=== PATIENT | male | born 1995 | race Caucasian/White ===

== ENCOUNTER 2025-09-09 02:36 | Emergency (ER) | payer OTHER, SELFPAY ==
[2025-09-09 02:53] VITALS: BP 128/75; PULSE 78; RESP 16; TEMP 36.6; O2SAT 98; BMI 26.4
--- NOTE | 2025-09-09 04:07 | ED_ITS ---
HPI - Medical Clearance General Chief complaint: Body Fluid Exposure Stated complaint: Body Fluid Exposure Time Seen by Provider: 09/09/25 04:03 Source: patient Limitations: no limitations History of Present Illness ED Provider: Yue Caputo PA-C HPI Narrative: 30-year-old male presents after bodily fluid exposure. Patient states he was a resting an individual, the person spit toward his face, he thinks there was a drop of saliva that touched his lip. The sputum was not bloody. The patient is up-to-date on his vaccines. The source patient is not willing to be tested for blood borne pathogens. Related Information Allergies Allergy/AdvReac Type Severity Reaction Status Date / Time No Known Allergies Allergy Verified 09/09/25 02:54 Review of Systems Review of Systems: Yes all other systems are reviewed and are negative Constitutional: Constitutional: Denies fatigue and Denies fever(s) Integumentary/Breasts: Skin/Breast: Denies sores and Denies wounds Endocrine: Endocrine: Denies fatigue PMFSH Past Medical History Attestation statement: The following information was validated with the patient. Physical Exam Vital Signs: Vital Signs: Last Vital Signs Temp 98 F 09/09/25 02:53 Pulse 78 09/09/25 02:53 Resp 16 09/09/25 02:53 BP 128/75 09/09/25 02:53 Pulse Ox 98 09/09/25 02:53 O2 Del Method Room Air 09/09/25 02:53 BMI result Body Mass Index 26.4 Const: Other: Alert well-appearing Orientation/consciousness: patient oriented x3 HEENT: Other: No breach in the oral mucosa of the lips Resp: Effort & Inspection: normal respiratory effort Cardio: Other: Normal peripheral perfusion Skin: Other: Warm dry no rash Neuro: General: patient oriented x3, gait normal, no focal motor deficits and CN's II-XI intact bilaterally Psych: Other: Cooperative Medical Decision Making Medical Decision Making [facility] Narrative: 30-year-old male presents after bodily fluid exposure. Patient states he was a resting an individual, the person spit toward his face, he thinks there was a drop of saliva that touched his lip. The sputum was not bloody. The patient is up-to-date on his vaccines. The source patient is not willing to be tested for blood borne pathogens. Problem: Exposure to bodily fluid History: Per patient I have considered the following differential diagnoses: Potential exposure to blood borne pathogen Plan: The nature of the exposure seems extremely minimal, it is also questionable that there was any actual saliva contact with the oral mucosa. I will determine this exposure to be low risk. The patient is declining post exposure prophylaxis. There was no indication for labs at this point. Differential Diagnosis Differential Diagnoses: The differential diagnosis associated with the presentation includes See medical decision-making Admission/Observation Consideration of admission/observation: Escalation of care including admission/observation considered Not apply Discharge Plan Discharge Clinical Impression: Exposure to blood or body fluid Patient Disposition: Home, Self-Care Instructions: Body Substance Exposure (ED) Additional Instructions: The nature of your exposure appears to be low risk from your description. Post exposure prophylaxis was not warranted. It would be ideal if the source patient was willing to be tested for potential blood borne pathogens. Continue to follow up with your primary care provider as needed.
[2025-09-09 04:17] VITALS: BP 128/75; PULSE 78; RESP 16; TEMP 36.6; O2SAT 98
--- OUTSIDE RECORDS SUMMARY | 2025-09-09 04:19 | XMS_ITS | Encounter Summary ---
Author Organization [facility] Address [address] [place] [address] Care Team Providers Care Scrap Crane Operator Name Role Phone Diane Mclean MD Primary Care Provider Unavaila ble Encounter Details Date Type Department Care Team (Late st Contact Info) Description 09/13/2015 Orders Only [facility] [address] [place] [id number] Diane Mclean MD Social History Tobacco Use Types Packs/Day Years Used Date Smoking Tobacco: Never Alcohol Use Standard Drinks/Week Comments Not Asked 0 (1 standard drink = 0.6 oz pur e alcohol) Sex and Gender Information Value Date Recorded Sex Assigned at Not on file Legal Sex Male 3:43 AM EDT Gender Identity Not on file Sexual Orientation Not on file documented as of this encounter Plan of Treatment Not on file documented as of this encounter Procedures * Due to [facility] law, this organization might not be sharing negative HIV tests. Procedure Name Priority Date/Time Associated Diagnosis Comments URINALYSIS, MICROSCOPIC Routine 09/13/2015 11:30 AM EST Abdominal pain, unspecified abdominal location documented in this encounter Results * Due to [place] [employer] law, this organization might not be sharing negative HIV tests. * URINALYSIS, MICROSCOPIC (09/13/2015 11:30 AM EST) WBC (Urine) NONE SEEN < OR = 5 /HPF [facility] Comment:{WBC {[id number]) RBC (Urine Sed) NONE SEEN < OR = 2 /HPF [facility] Comment:{RBC {[id number]) Epithelial cells.squamous (Urine sed) NONE SEEN < OR = 5 /HPF [facility] Comment:{SQUAMOUS EPITHELIAL CELLS {[id number]) Bacteria (Urine) NONE SEEN NONE SEEN /HPF [facility] Comment:{BACTERIA {[id number]) Hyaline casts (Urine sed) NONE SEEN NONE SEEN /LPF [facility] Comment:{HYALINE CAST {[id number]) 09/13/2015 11:3 0 AM EST 09/13/2015 3:41 PM EST Narrative Resulting Agency Comment [id number] Diane Mclean MD LAB SAME DAY RESULT Final Resul t [facility] [address] [place] [address] documented in this encounter Visit Diagnoses Diagnosis Abdominal pain, unspecified abdominal location documented in this encounter Care Teams Scrap Crane Operator Relationship Specialty Start Date End Date Diane Mclean MD PCP - General 02/02/06 documented as of this encounter
--- OUTSIDE RECORDS SUMMARY | 2025-09-09 04:19 | XMS_ITS | Clinical Summary ---
Author Organization [facility] Address [address] [place] [address] Care Team Providers Care Labor Specialist Name Role Phone Diane Mclean MD Primary Care Provider Unavaila ble Allergies Active Allergy Reactions Criticality Noted Date Comments Peanut Allergen Powder-Dnfp Anaphylaxis High 020 Medications EPINEPHrine (EPIPEN) 0.3 MG/0.3ML injection syringe Inject 0.3 mg into a muscle Active Active Problems Problem Noted Date Diagnosed Date Pectus excavatum 07/12/2010 Overview (07/12/2010): Minor, asymptomatic Well Child Visit 06/28/2008 Overview (11/26/2016): [employer]-; 7th grade 08; rrt geography; 9th grade 09; rrt 'science 10th grade 10 10th grade 11;hx ;rrt 12th grade 13; hx ?[facility] Fall 14 to [employer] [facility] and [facility] state 15 not sure ; likes to stay busy 2016 [employer]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 Immunizations Immunization Administration Dates Next Due Chicken Pox (Disease/Titer) 02/09/1998 Covid-19, Vector-nr (Saumya), 0.5 Ml 10/31/2021 ,08/31/2021 DTaP 03/15/2000, 7,1996,07/27,1996 FC Influenza Virus Vac Splt Prsrv Fr 3 Yrs+ 08/30/2009 Flu Vac State 6-35 mos 09/06/2008 Flu Vac State Mist 2-49 yrs 11/07/2012 HIB (PRP-T) 05/20/1997, 6,1996,05/18 HPV9 (Gardasil 9) 09/26/2022 Hep A 06/16/2013 Hep A (pedi) 06/28/2014 Hep B (pedi) 1996,1996,1996 IPV 03/15/2000 Influenza,injectable,quad,Prsrv Fr 08/05/2019, Influenza,seasonal,trivalent ,preservat samuel (FLUZONE MDV) 09/16/2007 MMR 03/19/2001,05/20/1997 Meningococcal ACWY (Menactra) 06/28/2014, 008 OPV, Trivalent (Admin Before 02/10/2016) ,1996,1996 Tdap 04/19/2021 Tdap(Boostrix) 06/28/2008 Family History Medical History Relation Name Comments Allergies (med/food/envrnmt) Brother 2 Allergies (med/food/envrnmt) Father GUADALUPE Diabetes Maternal grandfather Heart Disorder Maternal grandfather Hypertension Maternal grandfather Lipid/Cholesterol Abnormality Maternal grandfather Stroke Maternal grandfather Pulmonary Disorder Maternal grandmother Allergies (med/food/envrnmt) Mother SHAHLA SEASONAL Lipid/Cholesterol Abnormality Other 2 UNSPECIFIED FAMILY MEMBER Diabetes Other 3 UNSPECIFIED FAM THIAGO MEMBER Diabetes Paternal grandfather Alcohol/Drug Neg Hx Anesthesia Problems/Malignan t Hyperthermia Neg Hx Arthritis/Joint disorder Neg Hx Asthma Neg Hx Blood Cell Disorder/Hemoglobinopathy Neg Hx Cancer (?Type) Neg Hx Cancer - Breast Neg Hx Dementia Neg Hx Headache/Migraine Neg Hx No Known or Significant Medical History Neg Hx Other Neg Hx Psych/Mental Health Neg Hx Thyroid Disorder Neg Hx Relation Name Status Comments Brother 1 GLENN Alive Brother 2 Father GUADALUPE Alive Maternal grandfather Maternal grandmother Mother SHAHLA Alive Other 1 CHILDHOOD --UNSPECIFIED FAMILY MEMBER Other 2 Other 3 Paternal grandfather Social History Tobacco Use Types Packs/Day Years Used Date Smoking Tobacco: Never Smokeless Tobacco: Never Tobacco Cessation:Counseling Given: Not Answered Alcohol Use Standard Drinks/Week Comments Not Asked 0 (1 standard drink = 0.6 oz pur e alcohol) Intimate Partner Violence Answer Date R ecorded Fear of Current or Ex-Partner Not on file Emotionally Abused Not on file 07/13/2023 Physically Abused Not on file 07/13/2023 Sexually Abused Not on file 07/13/2023 Feel Safe at Home Not on file 07/13/2023 Sex and Gender Information Value Date Recorded Sex Assigned at Not on file Legal Sex Male 3:43 AM EDT Gender Identity Not on file Sexual Orientation Not on file Last Filed Vital Signs Vital Sign Reading Time Taken Comments Blood Pressure 123/80 07/21/2022 10:23 AM EDT Pulse 60 07/21/2022 10:23 AM EDT Temperature 36.8 C (98.3 F) 07/21/2022 10:23 AM EDT Respiratory Rate 20 07/26/2015 3:11 PM EDT Oxygen Saturation 98% 07/21/2022 10:23 AM EDT Inhaled Oxygen Concentration - - Weight 82.1 kg (181 lb) 11/26/2016 8:52 AM EST Height 184 cm (6' 0.44 ) 11/26/2016 8:52 AM EST Body Mass Index 24.25 11/26/2016 8:52 AM EST Plan of Treatment Health Maintenance Due Date Last Done Comments Hepatitis C Screening 1996 HPV Vaccine (2 - Male 3-dose series) 10/24/2022 09/26/2022 COVID-19 Vaccine ( season) 2025 10/31/2021, 08/31/2021 Influenza (#1) 2025 08/05/2019, 08/12, 11/07/2012, Additional history exists DTaP/Tdap/Td (8 - Td or Tdap) 04/19/2031 04/19/2021, 06/28/2008, 03/15/2000, Additional history exists Zoster (Shingrix) (1 of 2) 2046 Hep B Completed 1996, 06/1996, 1996 Hib Completed 05/20/1997, 10/11, 1996, Additional history exists Hep A Completed 06/28/2014, 06/16/2013 Meningococcal ACWY Completed 06/28/2014, 06/28/2008 Physical Discontinued 09/14/2020, 11/11, 07/26/2015, Additional history exists Pneumococcal Aged Out No longer eligi ble based on patient's age to complete this topic Insurance [facility] Care Teams Labor Specialist Relationship Specialty Start Date End Date Diane Mclean MD PCP - General 02/02/06
--- OUTSIDE RECORDS SUMMARY | 2025-09-09 04:19 | XMS_ITS | Encounter Summary ---
Author Organization [facility] Address [address] [place] [address] Care Team Providers Care Gas Truck Driver Name Role Phone Diane Mclean MD Primary Care Provider Unavaila ble Encounter Details Date Type Department Care Team (Late st Contact Info) Description 08/13/2012 Orders Only [facility] [address] [place] [phone] Diane Mclean MD Social History Tobacco Use Types Packs/Day Years Used Date Smoking Tobacco: Never Assessed Sex and Gender Information Value Date Recorded Sex Assigned at Not on file Legal Sex Male 3:43 AM EDT Gender Identity Not on file Sexual Orientation Not on file documented as of this encounter Plan of Treatment Not on file documented as of this encounter Procedures * Due to [place] [employer] law, this organization might not be sharing negative HIV tests. Procedure Name Priority Date/Time Associated Diagnosis Comments CULTURE, HERPES SIMPLEX VIRUS, RAPID METHOD WITHOUT TYPING Routine 08/13/2012 5:06 PM EDT Rash and nonspecific skin eruption CULTURE,AEROBIC WOUND,SUPERFICIAL Routine 08/13/2012 5:06 PM EDT Rash and nonspecific skin eruption documented in this encounter Results * Due to [place] [employer] [place] law, this organization might not be sharing negative HIV tests. * (ABNORMAL) CULTURE, HERPES SIMPLEX VIRUS, RAPID METHOD WITHOUT TYPING (08/13/2012 5:06 PM EDT) Herpes simplex virus identified SEE NOTE(A) [facility] Comment: {CULTURE, HERPES SIMPLEX VIRUS, RAPID METHOD {[id number]) CULTURE, HERPES SIMPLEX VIRUS, RAPID METHOD MICRO NUMBER: [id number] TEST STATUS: FINAL SPECIMEN SOURCE: NOT GIVEN SPECIMEN QUALITY: ADEQUATE HSV CULTURE: Positive 08/13/2012 5:06 PM EDT 08/13/2012 9:36 PM EDT Narrative Resulting Agency Comment [id number] Diane Mclean MD LABORATORY Final Result Performing Organization Address [facility] Co de Phone Number [facility] [address] [place] [address] * CULTURE, WOUND, SUPERFICIAL (08/13/2012 5:06 PM EDT) Bacteria culture SEE NOTE [facility] Comment: {CULTURE, AEROBIC BACTERIA {[id number]) CULTURE, AEROBIC BACTERIA MICRO NUMBER: [id number] TEST STATUS: FINAL SPECIMEN SOURCE: NOT GIVEN SPECIMEN QUALITY: ADEQUATE RESULT: Growth of skin billie (note: Growth does not include S. aureus, beta-hemolytic Streptococci or P. aeruginosa). 08/13/2012 5:06 PM EDT 08/13/2012 9:36 PM EDT Narrative Resulting Agency Comment [id number] Diane Mclean MD LABORATORY Final Result Performing Organization Address [facility] de Phone Number [facility] [address] [place] [address] documented in this encounter Visit Diagnoses Diagnosis Rash and nonspecific skin eruption Rash and other nonspecific skin eruption documented in this encounter Care Teams Gas Truck Driver Relationship Specialty Start Date End Date Diane Mclean MD PCP - General 02/02/06 documented as of this encounter
--- OUTSIDE RECORDS SUMMARY | 2025-09-09 04:19 | XMS_ITS | Encounter Summary ---
Author Organization [facility] Address [address] [place] [address] Care Team Providers Care Dresser Tender Name Role Phone Diane Mclean MD Primary Care Provider Unavaila ble Reason for Visit * Reason Comments E-prescribing Refill Request Encounter Details Date Type Department Care Team (Late st Contact Info) Description 12/06/2022 Refill [facility] [address] [address] Berna Fields PA E-prescribing Refill Request Social History Tobacco Use Types Packs/Day Years Used Date Smoking Tobacco: Never Smokeless Tobacco: Never Alcohol Use Standard Drinks/Week Comments [...] on file documented as of this encounter Visit Diagnoses Not on filedocumented in this encounter Care Teams Dresser Tender Relationship Specialty Start Date End Date Diane Mclean MD PCP - General 02/02/06 documented as of this encounter
--- OUTSIDE RECORDS SUMMARY | 2025-09-09 04:19 | XMS_ITS | Clinical Summary ---
Author Organization [facility] Address [address] [place] [address] Care Team Providers Care Clinical Nutrition Manager Name Role Phone Vik Owens MD Primary Care Provider [phone] Allergies No known active allergies Medications polymyxin B sulf-trimethoprim (POLYTRIM) ophthalmic solutionIndication s:Acute bacterial conjunctivitis of left eye Instill 1 drop into the left eye every 4 hours. 10 mL 02/02/20 23 Active Additional Information Patient not taking.Reported on 02/23/2025 Active Problems Problem Noted Date Diagnosed Date Elevated blood-pressure read ing without diagnosis of hypertension 12/19/2022 Assessment & Plan (12/19/2022 6:27 PM EST): Blood pressure today was high at 148/81 and 145/91. Recommend he monitor blood pressures at home and send an update on Mychart. Acute left ankle pain 12/19/2022 Assessment & Plan (12/19/2022 6:29 PM EST): Suspect left ankle ligament sprain. X- ray was ordered to rule out fracture. For pain control and inflammation, recommend Tylenol 1000 mg BID for 2 days, stop if no change. Continue ice and rest. Proceed with physical therapy. Follow up with sports medicine for potential injection. Vision changes 03/01/2022 Assessment & Plan (03/01/2022 6:04 PM EDT): Overall, Fabrizio has a history of worsening vision with associated floaters and different changes with light. Given he has a family history of vision difficulties and his grandmother, his primary concern is worsening vision to the point where he may go blind. I did reassure him that this was unlikely, however he would benefit from an ophthalmologic evaluation given the floaters, flashes of light, and overall worsening visual acuity. His cranial nerves are reassuring and a central lesion is unlikely for him. -Ambulatory referral to ophthalmology Laceration of left lower extremity 04/19/2021 Assessment & Plan (04/19/2021 11:53 AM EDT): Patient presented with a laceration to the left leg after falling out of his truck during a camping trip. Patient's leg became warm, painful, and swollen. Based on exam and history the patient had a healing laceration and injured soft tissue of the left lower leg that may have been an infection but showed no sign of current infection. This soft tissue bruising may take up to 6 weeks to heal. Patient was advised to continue lathering and rinsing the area with bar soap and water twice a day. Patient's tetanus shot was not up to date and he received a Tdap vaccine today. Patient can follow up as needed if symptoms worsen. 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 Irritable bowel syndrome wit h both constipation and diarrhea 09/09/2020 Immunizations Immunization Administration Dates Next Due Diphtheria, Tetanus Toxoids and Acellular Pertussis Vaccine 03/15/2000,09/10/1997,1996,07/27,1996 Haemophilus Influenzae Type B Vaccine, PRP-T Conjugate 05/20/1997,1996,1996,05/18 Hepatitis A Vaccine, Pediatric/Adolescent Dosage, 2 Dose Schedule 06/28/2014 Hepatitis A Vaccine, Pediatric/Adolescent Dosage, 3 Dose Schedule 06/16/2013 Hepatitis B Vaccine, Pediatr ic or Pediatric/Adolescent Dosage 1996,1996,1996 Human Papillomavirus 9-Valent Vaccine 09/26/2022 Influenza, Injectable, Quadr ivalent, Preservative Free 08/05/2019,09/02/2016,09/02/2016,11/07 Influenza, Trivalent, MDV, Injectable 08/30/2009 ,09/16/2007 Influenza, Unspecified 09/06/2008 Measles, Mumps, and Rubella Vaccine 03/19/2001,0 05/20/1997 Meningococcal Polysaccharide (Groups A, C, Y and W-135) Diphtheria Toxoid Conjugate Vaccine (MCV4P) 06/28/2014,06/28/2008 Poliovirus Vaccine, Inactivated 03/15/2000 Tetanus Toxoid, Reduced Diph theria Toxoid, and Acellular Pertussis Vaccine, Adsorbed 04/19/2021,06/28/2008 Trivalent Poliovirus Vaccine , Live, Oral 1996,1996,1996 Varicella Virus Vaccine 02/09/1998 Family History Medical History Relation Name Comments Myocardial Infarction Maternal Grandfather Brain cancer Maternal Grandmother Lung cancer Maternal Grandmother Heart murmur Mother Diabetes Paternal Grandfather Relation Name Status Comments Maternal Grandfather Maternal Grandmother Mother Paternal Grandfather Social History Tobacco Use Types Packs/Day Years Used Date Smoking Tobacco: Never Smokeless Tobacco: Never Tobacco Cessation:Counseling Given: Not Answered Alcohol Use Standard Drinks/Week Comments Yes 0 (1 standard drink = 0.6 oz pur e alcohol) Sex and Gender Information Value Date Recorded Sex Assigned at Male 02/28/2022 9:56 PM EDT Legal Sex Male 12:20 PM EDT Gender Identity Male 02/28/2022 9:56 PM EDT Sexual Orientation Straight 02/28/2022 9: 56 PM EDT 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 on file Not on file Last Filed Vital Signs Vital Sign Reading Time Taken Comments Blood Pressure 135/86 02/23/2025 2:55 PM EDT Pulse 93 02/23/2025 2:55 PM EDT Temperature 36.5 C (97.7 F) 07/22/2020 9:04 AM EDT Respiratory Rate 16 12/24/2022 10:51 AM EST Oxygen Saturation 98% 09/26/2022 2:18 PM EST Inhaled Oxygen Concentration - - Weight 98.4 kg (217 lb) 09/26/2022 2:18 PM EST Height 185.4 cm (6' 1 ) 09/26/2022 2:18 PM EST Body Mass Index 28.63 09/26/2022 2:18 PM EST Plan of Treatment Health Maintenance Due Date Last Done Comments HIV Screening 1996 Varicella Vaccines (2 of 2 - 2-dose childhood series) 04/16/2001 02/09/1998 Alcohol/Substance Use Screening 11/11/2024 Depression Screening and Follow-Up 11/11/2024 Social Drivers of Health Annual Screening 11/11/2024 COVID-19 Vaccine (3 - season) 2025 10/31/2021, 08/31/2021 Influenza Vaccine (#1) 2025 9, 09/02/2016, 09/02/2016, Additional history exists DTaP,Tdap,and Td Vaccines (8 - Td or Tdap) 04/19/2031 04/19/2021, 06/28/2008, 03/15/2000, Additional history exists RSV Vaccine (60+ years old and patients) (1 - 1-dose 75+ series) 2071 Hepatitis B Vaccines Completed 1996, 1996, 1996 Hepatitis C Screening Completed 09/14/2020 Pneumococcal Vaccine: Pediatric (0-5 Years) and At-Risk Patients (6-50 Years) Aged Out No longer eligible based on patient's age to complete this topic Procedures * Due to [place] [employer] law, this organization might not be sharing negative HIV tests. Procedure Name Priority Date/Time Associated Diagnosis Comments HEPATITIS C ANTIBODY W/REFLEX TO HCV RNA, QUANTITATIVE PCR Routine 09/14/2020 10:29 AM EST Encounter for hepatitis C screening test for low risk patient from Last 3 Months or Most Recently Relevant to Health Maintenance Results * Due to [place] [employer] law, this organization might not be sharing negative HIV tests. * Hepatitis C Antibody w/Reflex to PCR (09/14/2020 10:29 AM EST) Hepatitis C Antibody NON-REACT DON NON-REACT DON 09/14/2020 10:19 PM EST [facility] Signal To Cut-Off 0.03 <1.00 09/14/2020 10:19 PM EST [facility] Comment: HCV antibody was non-reactive. There is no laboratory evidence of HCV infection. In most cases, no further action is required. However, if recent HCV exposure is suspected, a test for HCV RNA (test code 97009) is suggested. For additional information please refer to http://education.teextee/faq/GUQ26e5 (This link is being provided for informational/ educational purposes only.) Blood Structure of peripheral vein / Unknown Venipuncture / Unknown 09/14/2020 10:29 AM EST 09/14/2020 10:29 AM EST Narrative [facility] - 09/14/2020 10:19 PM EST [facility] Received Date: us Osmar Rondon MD LAB BLOOD ORDERABLES Final Re sult [facility] [address], [place] [address], [employer] [address], [place] [address], from Last 3 Months or Most Recently Relevant to Health Maintenance Insurance [facility] [employer] Advance Directives Documents on File Type Date Recorded Patient Putty Remover Expl anation Health Care Proxy 09/27/2022 12:28 PM Care Teams Clinical Nutrition Manager Relationship Specialty Start Date End Date Vik Owens MD [address] [place] [address] PCP - General 05/22/25
--- OUTSIDE RECORDS SUMMARY | 2025-09-09 04:19 | XMS_ITS | Clinical Summary ---
Author Organization [facility] [employer] [facility] [employer] Address [address] [place] [address] Care Team Providers Care Student Services Representative Name Role Phone Diane Mclean MD Primary Care Provider [phone] Immunizations Immunization Administration Dates Next Due Fluarix Quadrivalent Prefilled Syringe 6 Social History Tobacco Use Types Packs/Day Years Used Date Smoking Tobacco: Never Assessed Sex and Gender Information Value Date Recorded Sex Assigned at Not on file Legal Sex Male 11:37 AM EDT Gender Identity Not on file Sexual Orientation Not on file Plan of Treatment Health Maintenance Due Date Last Done Comments Depression: Screening Annual ly using PHQ-2/9 in Adults 18 yrs or above (or HM Modifier)([facility]) 2014 Hepatitis C Virus Infection in Adolescents and Adults: Screening (or Modifier) ([facility]) 2014 SDOH Screening Reminder: Denise addi for all adults ([facility]) 2014 Tobacco Smoking Cessation: i n Adults excluding Women: Behavioral and Pharmacotherapy Interventions ([facility]) 2014 Flu Vaccination: Yearly for ages 18mos through 64 years (or Modifier)([facility]) 06/11/2025 09/02/2016 COVID-19 Vaccine Screening: Initial Series and Booster Status ([facility]) ( - 2023- season) 2025 DTaP/Tdap/Td Vaccines ([facility]) (2 - Td or Tdap) 04/19/2031 04/19/2021 Zoster/Shingles Vaccine Seri es Screening: Adults aged 18+ yrs (or HM Modifiers)([facility]) (1 of 2) 2046 Pneumococcal Vaccination Scr eening: Pts 0-19 & 19-49 yrs of age ([facility]) Aged Out No longer eligible b ased on patient's age to complete this topic Medical Devices Not on file Insurance [employer] Care Teams Student Services Representative Relationship Specialty Start Date End Date Diane Mclean MD [address] [place] [phone] PCP - General Pediatrics 09/02/16
--- OUTSIDE RECORDS SUMMARY | 2025-09-09 04:19 | XMS_ITS | Encounter Summary ---
Author Organization [facility] Address [address] [place] [address] Care Team Providers Care Hydroelectric Plant Operator Name Role Phone Diane Mclean MD Primary Care Provider Unavaila ble Encounter Details Date Type Department Care Team (Late st Contact Info) Description 09/13/2015 Orders Only [facility] [place] [address] [facility] [address] [place] [id number] Skyla Arriaza MD Social History Tobacco Use Types Packs/Day [...] of this encounter Procedures * Due to [place] Gametime law, this organization might not be sharing negative HIV tests. Procedure Name Priority Date/Time Associated Diagnosis Comments CBC INCLUDES DIFFERENTIAL AND PLATELET COUNT STAT (All results called to provider) 09/13/2015 1:40 PM EST Abdominal pain, unspecified abdominal location CT ABDOMEN AND PELVIS COMBINED W CONTRAST Routine 09/13/2015 1:39 PM EST documented in this encounter Results * Due to [place] Gametime law, this organization might not be sharing negative HIV tests. * (ABNORMAL) CBC INCLUDES DIFFERENTIAL AND PLATELET COUNT (09/13/2015 1:40 PM EST) Pathologist [facility] WBC 10.5 3.8 - 10.8 Thousand/ uL [facility] Comment:{WHITE BLOOD CELL CO UNT {[id number]) RBC 5.35 4.20 - 5.80 Million/u L [facility] Comment:{RED BLOOD CELL COUN T {[id number]) Hemoglobin 15.4 13.2 - 17.1 g/dL [facility] Comment:{HEMOGLOBIN {[id number]) Hematocrit 46.5 38.5 - 50.0 % [facility] Comment:{HEMATOCRIT {[id number]) MCV 86.8 80.0 - 100.0 fL [facility] Comment:{MCV {[id number]) MCH 28.7 27.0 - 33.0 pg [facility] Comment:{MCH {[id number]) MCHC 33.1 32.0 - 36.0 g/dL [facility] Comment:{MCHC {[id number]) RDW 11.6 11.0 - 15.0 % [facility] Comment:{RDW {[id number]) PLT 223 140 - 400 Thousand/ uL [facility] Comment:{PLATELET COUNT {[id number]) MPV 8.6 7.5 - 11.5 fL [facility] Comment:{MPV {[id number]) Neutrophils # 8747(H) 1500 - 7800 cells/uL [facility] Comment:{ABSOLUTE NEUTROPHIL S {[id number]) Lymphocytes # 1113 850 - 3900 cells/uL [facility] Comment:{ABSOLUTE LYMPHOCYTE S {[id number]) Monocytes # 588 200 - 950 cells/uL [facility] Comment:{ABSOLUTE MONOCYTES {[id number]) Eosinophils # 32 15 - 500 cells/uL [facility] Comment:{ABSOLUTE EOSINOPHIL S {[id number]) Basophils # 21 0 - 200 cells/uL [facility] Comment:{ABSOLUTE BASOPHILS {[id number]) Neutrophils % 83.3 % [facility] Comment:{NEUTROPHILS {[id number]) Lymphocytes % 10.6 % [facility] Comment:{LYMPHOCYTES {[id number]) Monocytes % 5.6 % [facility] Comment:{MONOCYTES {[id number]) Eosinophils % 0.3 % [facility] Comment:{EOSINOPHILS {[id number]) Basophils % 0.2 % [facility] Comment:{BASOPHILS {[id number]) 09/13/2015 1:40 PM EST 09/13/2015 2:51 PM EST Narrative Resulting Agency Comment [id number] us Skyla Arriaza MD LAB SAME DAY RESULT Final Resul t [facility] [address] [place] [address] * CT ABDOMEN AND PELVIS COMBINED W CONTRAST (09/13/2015 1:39 PM EST) RADIOLOGY REPORT [facility] Department of Radiology [address] [place] [address], [id number] Name: FABRIZIO VASQUES : 89 Date of Service: 09/13/15 1330 Acct Number: [id number] Order Number: [id number] Location: [facility] Report Number: [id number] Service: REG REF/ Requesting Physician: Skyla Arriaza [place] [place] Category: COMPUTED TOMOGRAPHY [facility] Exam: ABDOMEN PELVIS W CONTRAST Signs/Symptoms: ABD PAIN Report Status: ---Signed--- CT ABDOMEN AND PELVIS WITH INTRAVENOUS CONTRAST TECHNIQUE: CT scan of the abdomen and pelvis was performed following the intravenous administration of 80 cc of Isovue 370. Coronal and sagittal reformatted images were generated. COMPARISON: None available. FINDINGS: LOWER THORAX: Lung bases are clear. Visualized heart is normal in size. HEPATOBILIARY: Liver is unremarkable. Gallbladder is physiologically distended. No biliary ductal dilatation. SPLEEN: No splenomegaly. PANCREAS: Unremarkable. ADRENAL GLANDS: No nodules. KIDNEYS AND URETERS: Kidneys enhance symmetrically. No hydronephrosis. STOMACH/GI TRACT: Stomach is physiologically distended. Appendix is dilated measuring 11 mm with wall thickening and significant periappendiceal fat stranding, findings consistent with acute appendicitis. No bowel obstruction. PELVIC ORGANS/BLADDER: Urinary bladder is underdistended and grossly unremarkable. Prostate gland is normal in size. PERITONEUM AND RETROPERITONEUM: No free air or loculated fluid collection. LYMPH NODES: Numerous mildly enlarged mesenteric lymph nodes most pronounced in the right lower quadrant, likely reactive to acute appendicitis. These lymph nodes measure up to 11 mm short axis, coronal image 110. VESSELS: Abdominal aorta is nonaneurysmal. BONES AND SOFT TISSUES: Prominent osseous ridging noted at the lateral femoral head-neck junction bilaterally suggesting cam-type femoroacetabular impingement morphology. Mild subchondral sclerosis involves the acetabula without significant joint space narrowing. Femoral head contour is otherwise smooth. IMPRESSION: 1. Acute appendicitis. No abscess or free air. 2. 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 Acute appendicitis discussed with nurse Jimenez (for Skyla Arriaza) at 09/13/2015 1:49 PM. Interpreting Resident: Date/Time of Dictation: 09/13/15 1339 Approved Electronically By/Date: Naeem Bowser 09/13/15 1355 [facility] Department of Radiology [address] [place] [address], [id number] [facility] RAD Anatomical Region Laterality Modality Other 09/13/2015 1:39 PM EST Narrative 09/13/2015 1:55 PM EST Reason for Study/History: Department of Radiology TEST(S) PROCESSED BY [facility] XRAY us Skyla Arriaza MD IMAGING[facility] Final Result documented in this encounter Visit Diagnoses Diagnosis Abdominal pain, unspecified abdominal location documented in this encounter Care Teams Hydroelectric Plant Operator Relationship Specialty Start Date End Date Diane Mclean MD PCP - General 02/02/06 documented as of this encounter
--- OUTSIDE RECORDS SUMMARY | 2025-09-09 04:19 | XMS_ITS | Encounter Summary ---
Author Organization [facility] Address [address] [place] [address] Care Team Providers Care Buffet Manager Name Role Phone Diane Mclean MD Primary Care Provider Unavaila ble Encounter Details Date Type Department Care Team (Late st Contact Info) Description 03/18/2007 Orders Only [facility] [address] [place] [phone] Diane Mclean MD Medications Social History Tobacco Use Types Packs/Day Years [...] on filedocumented in this encounter Care Teams Buffet Manager Relationship Specialty Start Date End Date Diane Mclean MD PCP - General 02/02/06 documented as of this encounter
== END 2025-09-09 04:20 | disposition home or self-care (01) ==
LOC: HO.ED 04:16
PROVIDERS: Emergency Provider Emergency Medicine
DX: Z77.21 Contact with and (suspected) exposure to potentially hazardous body fluids (principal)
CPT/HCPCS: 99282